=== PATIENT | male | born 1940 | race Caucasian/White ===

== ENCOUNTER 2018-08-03 05:34 | Outpatient (CLI) | payer MEDICARE ==
[~2018-08-03] VITALS: Ht 180.3 cm; Wt 95.3 kg
[2018-08-03] MEDS ORDERED: MULT-1056 PO (15:20)
[2018-08-03] MEDS ORDERED: HYDR12.56 PO (15:20)
[2018-08-03] MEDS ORDERED: PSYL660P17 PO (15:20)
[2018-08-03] MEDS ORDERED: MELO15TA39 PO (15:20)
[2018-08-03] MEDS ORDERED: TAMS0.4C98 PO (15:20)
[2018-08-03] MEDS ORDERED: GARL580C PO (15:20)
[2018-08-03] MEDS ORDERED: AMLO10TA7 PO (15:20)
[2018-08-03] MEDS ORDERED: SAW500CA10 PO (15:20)
[2018-08-03] MEDS ORDERED: CILO50TA PO (15:20)
[2018-08-03] MEDS ORDERED: ASPI-586 PO (15:20)
[2018-08-03] MEDS ORDERED: GABA-488 PO (15:20)
[2018-08-03] MEDS ORDERED: ROSU10TA22 PO (15:20)
[2018-08-03] MEDS ORDERED: BENA20TA7 PO (15:20)
[2018-08-03] MEDS ORDERED: FOLI0.4T2 PO (15:20)
[2018-08-03] MEDS ORDERED: CHOL10003 PO (15:20)
[2018-08-03] MEDS ORDERED: OMEP20TA33 PO (15:20)
[2018-08-03] MEDS ORDERED: GBPN600T PO (16:26)
== END 2018-08-03 15:23 | disposition home or self-care (01) ==
LOC: PREOP 05:34 → EDUNIT# 09:00 → PREOP 15:23
PROVIDERS: ATTEND Orthopaedic Surgery
DX: Z01.818 Encounter for other preprocedural examination (principal)

== ENCOUNTER 2018-08-09 07:10 | Inpatient (IN) | payer MEDICARE | END 2018-08-10 16:25 | disposition home or self-care (01) | LOC: 4TH 08-10 13:17 → SURG 07:11 → 4TH 07:26 ==